=== PATIENT | female | born 1970 | race Caucasian/White ===

== ENCOUNTER → 2016-11-17 | Outpatient (CLI) | payer OTHER | END | disposition short-term general hospital (02) | LOC: CLRHEU 12:28 | DX: M06.9 Rheumatoid arthritis, unspecified (principal); M54.5 Low back pain; M13.80 Other specified arthritis, unspecified site ==

== ENCOUNTER → 2016-12-15 | Outpatient (CLI) | payer OTHER | END | disposition short-term general hospital (02) | LOC: CLRHEU 09:41 | DX: M05.9 Rheumatoid arthritis with rheumatoid factor, unspecified (principal); Z79.899 Other long term (current) drug therapy | CPT/HCPCS: J1030 ==